=== PATIENT | male | born 1960 | race Caucasian/White ===

== ENCOUNTER → 2017-05-21 | Outpatient (CLI) | payer OTHER | LOC: BMCIMAGING 09:09 | PROVIDERS: ATTEND Physician Assistant | DX: M25.571 Pain in right ankle and joints of right foot (principal) ==

== ENCOUNTER 2019-01-01 20:57 | Emergency (ER) | payer OTHER ==
[2019-01-01 21:05] VITALS: BP 153/111
--- NOTE | 2019-01-01 21:45 | EDPHY ---
H & P Time Seen by Provider: 01/01/19 21:12 HPI/ROS: Chief complaint: Right thumb pain History of present illness: This is a 58-year-old male who presents for right thumb pain. Reports increasing pain over the last few days. The pain is along the border of the fingernail. There is some redness and mild swelling. He denies precipitating factors. He denies alleviating factors. He denies other associated signs or symptoms including no fevers, no abnormal coolness, paresthesias or trauma. Smoking Status: Never smoked Physical Exam: General: Alert, nontoxic. Skin: There is mild erythema with trace edema along the skin proximal to the right thumbnail. No induration or fluctuance to suggest drainable paronychia at this time. Musculoskeletal: He is flexing extending the thumb in the PIP and moving in all leal of the MCP joint well. Vascular: Capillary refill brisk in the right thumb. Neurologic: Sensation intact throughout the right thumb. Constitutional: Initial Vital Signs Temperature (C) 37.0 C 01/01/19 21:03 Heart Rate 77 01/01/19 21:03 Respiratory Rate 16 01/01/19 21:03 Blood Pressure 153/111 H 01/01/19 21:03 O2 Sat (%) 94 01/01/19 21:03 O2 Delivery Mode Room Air Allergies/Adverse Reactions: No Known Allergies Allergy (Verified 01/14/14 22:28) Home Medications: Medication Instructions Recorded Cephalexin [Keflex] 500 mg PO TID 7 Days cap 01/01/19 Levothyroxine 01/01/19 MDM/Departure - MDM Medications Given: Discontinued Medications Cephalexin (Keflex 500 Mg Prepack#4) 1 btl TAKEHOME EDNOW ONE PRN Reason: Protocol Stop: 01/01/19 21:48 Last Admin: 01/01/19 21:55 Dose: 1 btl ED Course/Re-evaluation: Patient seen under the supervision of my secondary supervising physician Dr. Rhonda Graves. Patient presents for discomfort to his right thumb. He appears to be developing a paronychia. I do not appreciate a drainable fluid collection at this time. As he is traveling out country tomorrow I will place him on antibiotics. I do not appreciate further pathology at this time. We did discuss obtaining an x-ray, he has declined. Home care is discussed. Return precautions are given. The patient voiced understanding and agreement with plan. Differential Diagnosis: Included but not limited to paronychia, felon, septic arthritis, cellulitis, trauma - Depart Disposition: Home, Routine, Self-Care Clinical Impression: Paronychia of finger Qualifiers: Laterality: right Qualified Code(s): L03.011 - Cellulitis of right finger Condition: Good Instructions: Cephalexin (By mouth), Paronychia (ED) Additional Instructions: Follow-up with your primary care doctor next week for continued evaluation and care follow-up with her primary care doctor for continued evaluation and care Perform warm water soaks multiple times daily If symptoms worsen or new symptoms develop return to the emergency room for recheck Prescriptions: Cephalexin [Keflex] 500 mg PO TID 7 Days cap Referrals: Ruthann Mantilla PA [Primary Care Provider] - As per Instructions
[2019-01-01] MEDS ORDERED: CEPHALEXIN 500MG PREPACK#4 BTL TAKEHOME ONE (21:47)
== END 2019-01-01 21:56 | disposition home or self-care (01) ==
DX: L03.011 Cellulitis of right finger (principal)